=== PATIENT | male | born 1945 | race Caucasian/White ===

== ENCOUNTER 2018-05-04 18:56 | Inpatient (IN) | payer OTHER ==
[~2018-05-04] VITALS: Ht 170.2 cm; Wt 85.9 kg
[2018-05-04 19:26] VITALS: Ht 170.2 cm; Wt 85.9 kg
[2018-05-04 20:21] LABS: BASOPHIL % 0.4 % (0-2); PLATELET COUNT 76 x10^3mcL (130-400); RED CELL DISTRIBUTION WIDTH 13.2 % (11.5-14.5)
[2018-05-04 20:36] LABS: CALCIUM 8.6 mg/dL (8.5-10.1); CARBON DIOXIDE 27.2 mmol/L (21-32); CHLORIDE SERUM 107 mmol/L (98-107); CREATININE SERUM 0.7 mg/dL (0.7-1.3); GLUCOSE SERUM 119 mg/dL (74-106); POTASSIUM SERUM 3.3 mmol/L (3.5-5.1); SODIUM SERUM 143 mmol/L (136-145)
[2018-05-04 20:40] LABS: ALBUMIN 3.8 g/dL (3.4-5.0); ALKALINE PHOSPHATASE 89 U/L (46-116); ALT/SGPT 24 U/L (16-63); AMYLASE 77 U/L (25-115); AST/SGOT 21 U/L (15-37); BILIRUBIN TOTAL 0.77 mg/dL (0.20-1.00); LIPASE 154 IU/L (73-393); TOTAL PROTEIN, SERUM 7.6 g/dL (6.4-8.2)
[2018-05-04 21:44] LABS: UA SPECIFIC GRAVITY 1.015 (1.005-1.035); microscopic required? YES; urine erythrocyte NEGATIVE (NEGATIVE)
[2018-05-05] MEDS ORDERED: NAPROSYN500 MG PO (00:07)
[2018-05-05] MEDS ORDERED: POTASSIUM99 M1 PO (00:08)
[2018-05-05 00:26] LABS: T3 TOTAL 1.22 ng/mL
[2018-05-05 00:30] VITALS: BP 160/64
[2018-05-05 00:30] LABS: MAGNESIUM 2.2 mg/dL (1.8-2.4); PHOSPHOROUS 1.9 mg/dL (2.5-4.9)
[2018-05-05 00:31] LABS: CHOLESTEROL/HDL RATIO 2.6
[2018-05-05 00:49] LABS: FREE T4 1.06 ng/dL (0.76-1.46); FREE THYROXINE INDEX 2.1 ug/dL (1.4-4.5); T4(THYROXINE) 6.6 ug/dL (4.7-13.3)
[2018-05-05 02:29] LABS: AMPHETAMINE QUAL UR NONE DETECTED (See below)
[2018-05-05 04:39] VITALS: BP 151/68
[2018-05-05 08:24] VITALS: BP 148/62
[2018-05-05 08:33] LABS: BASOPHIL % 0.4 % (0-2); RED CELL DISTRIBUTION WIDTH 13.6 % (11.5-14.5)
[2018-05-05 08:36] LABS: CALCIUM 7.7 mg/dL (8.5-10.1); CARBON DIOXIDE 24.9 mmol/L (21-32); CHLORIDE SERUM 110 mmol/L (98-107); CREATININE SERUM 0.6 mg/dL (0.7-1.3); GLUCOSE SERUM 100 mg/dL (74-106); MAGNESIUM 1.8 mg/dL (1.8-2.4); PHOSPHOROUS 2.4 mg/dL (2.5-4.9); POTASSIUM SERUM 3.5 mmol/L (3.5-5.1); SODIUM SERUM 142 mmol/L (136-145)
[2018-05-05 08:37] LABS: PLATELET COUNT 61 x10^3mcL (130-400)
[2018-05-05 16:57] VITALS: BP 150/54
[2018-05-05 21:17] VITALS: BP 155/56
[2018-05-06 05:42] VITALS: BP 157/64
[2018-05-06 06:02] LABS: BASOPHIL % 0.7 % (0-2); RED CELL DISTRIBUTION WIDTH 13.5 % (11.5-14.5)
[2018-05-06 06:24] LABS: CALCIUM 7.9 mg/dL (8.5-10.1); CARBON DIOXIDE 24.1 mmol/L (21-32); CHLORIDE SERUM 112 mmol/L (98-107); CREATININE SERUM 0.7 mg/dL (0.7-1.3); GLUCOSE SERUM 100 mg/dL (74-106); MAGNESIUM 1.8 mg/dL (1.8-2.4); PHOSPHOROUS 3.3 mg/dL (2.5-4.9); POTASSIUM SERUM 3.7 mmol/L (3.5-5.1); SODIUM SERUM 146 mmol/L (136-145)
[2018-05-06 07:09] LABS: PLATELET COUNT 64 x10^3mcL (130-400)
[2018-05-06 08:52] VITALS: BP 148/64
[2018-05-06 17:11] VITALS: BP 146/68
== END 2018-05-06 18:57 | disposition left against medical advice (07) | DRG 444 ==
LOC: ED 18:56 → MU 23:17
PROVIDERS: Emergency Medicine; Family Medicine; Internal Medicine
DX: K80.20 Calculus of gallbladder without cholecystitis without obstruction (principal); K65.9 Peritonitis, unspecified; K52.9 Noninfective gastroenteritis and colitis, unspecified; E87.6 Hypokalemia; E83.39 Other disorders of phosphorus metabolism; K70.30 Alcoholic cirrhosis of liver without ascites; D75.9 Disease of blood and blood-forming organs, unspecified; F10.11 Alcohol abuse, in remission; Z68.35 Body mass index [BMI] 35.0-35.9, adult; Z79.1 Long term (current) use of non-steroidal anti-inflammatories (NSAID); Z53.29 Procedure and treatment not carried out because of patient's decision for other reasons
CPT/HCPCS: 78226; 83880; 84439; A9537; J1885; J2405; J2765; J3010; J7030; Q0092